=== PATIENT | male | born 1995 | race Caucasian/White ===

== ENCOUNTER 2020-04-25 21:05 | Inpatient (IN) ==
[2020-04-25 21:31] LABS: White Blood Count 7.3 K/mcL (4.3-11.1)
[2020-04-25 21:32] LABS: Basophils % 0.4 %; Eosinophils # 0.1 K/mcL (0.0-0.6); Eosinophils % 1.2 %; Hematocrit 43.8 % (37.5-50.1); Hemoglobin 15.3 g/dL (12.9-16.9); Immature Granulocytes % 0.1 % (0-4); Lymphocytes # 1.2 K/mcL (0.6-4.6); Mean Corpuscular HGB Conc 34.9 g/dL (31.6-35.5); Mean Corpuscular Hemoglobin 31.1 pg (28.0-33.3); Mean Platelet Volume 9.7 fL (9.4-12.4); Monocytes # 0.8 K/mcL (0.0-1.3); Monocytes % 11.4 %; Neutrophils # 5.1 K/mcL (1.6-8.9); Platelet Count 203 K/mcL (140-400); Red Blood Count 4.92 M/mcL (4.19-5.50); Red Cell Distribution Width 12.1 % (11.5-14.5); Segmented Neutrophils % 70.9 %
[2020-04-25 21:32] LABS: Bacteria,Urine Few per hpf (None-Few); Bilirubin,Urine Negative (Negative); Blood,Urine Large (Negative); Clarity,Urine Turbid (Clear); Color,Urine Light-Orange (Yellow); Glucose,Urine (UA) Normal (Normal); Ketones,Urine Trace mg/dL (Negative); Leukocyte Esterase,Urine Negative (Negative); Mucus,Urine Few per lpf (None-Few); Nitrite,Urine Negative (Negative); Protein,Urine 50 mg/dL (Neg-Trace); RBC,Urine TNTC per hpf (0-3); Specific Gravity,Urine 1.024 (1.010-1.025); WBC,Urine 0-3 per hpf (0-3)
[2020-04-25 21:35] LABS: Amphetamine Screen,Urine Positive ng/mL (Cutoff=1000); Barbiturate Screen,Urine Negative ng/mL (Cutoff=200); Benzodiazepines Screen,Urine Negative ng/mL (Cutoff=200); Cannabinoid Screen,Urine Positive ng/mL (Cutoff = 50); Cocaine Screen,Urine Negative ng/mL (Cutoff= 300); Opiate Screen,Urine Negative ng/mL (Cutoff=300); Phencyclidine Screen,Urine Negative ng/mL (Cutoff=25)
[2020-04-25 21:51] LABS: Acetaminophen < 10 mcg/mL (10-20); BUN/Creatinine Ratio 14 (6-26); Blood Urea Nitrogen 15 mg/dL (6-20); Calcium 10.2 mg/dL (8.6-10.3); Carbon Dioxide 29 mEq/L (23-29); Chloride 96 mEq/L (98-107); Chol/HDL Ratio 2.6 (0-4.9); Cholesterol 125 mg/dL (< 200); Ethanol < 10 mg/dL (Less than 10); Glucose 95 mg/dL (70-105); HDL Cholesterol 48 mg/dL (40-59); LDL Cholesterol,Calculated 56 mg/dL (< 100); Osmolality,Calculated 281 (280-300); Potassium 3.6 mEq/L (3.5-5.1); Salicylate < 2.5 mg/dL (15.0-30.0); Sodium 135 mEq/L (136-145); Triglycerides 103 mg/dL (< 150); eGFR For African Americans > 60 (> 60); eGFR For Non-African Americans > 60 (> 60)
[2020-04-25 22:48] LABS: Estimated Average Glucose 108 mg/dl
[2020-04-26] MEDS ORDERED: *HR* LORazepam 1 MG TABLET PO PRN (02:00)
[2020-04-26] MEDS ORDERED: MOM Conc 10 ML UD.LIQ PO PRN (02:00)
[2020-04-26] MEDS ORDERED: Haloperidol Lactate 5 MG/ML VIAL IM PRN (02:00)
[2020-04-26] MEDS ORDERED: *HR* LORazepam 2 MG/ML VIAL IM PRN (02:00)
[2020-04-26] MEDS ORDERED: Mag Hydrox/Al Hydrox/Simeth 30 ML UDC PO PRN (02:00)
[2020-04-26] MEDS ORDERED: haloperidoL 5 MG TABLET PO PRN (02:00)
[2020-04-26] MEDS: Ibuprofen 400 MG TABLET PO PRN ×2 (03:03→17:08)
[2020-04-26] MEDS: traZODone 50 MG TABLET PO PRN (03:03)
[2020-04-26] MEDS: cloNIDine HCL 0.1 MG TABLET PO PRN ×3 (03:04→17:08)
[2020-04-26] MEDS ORDERED: Nicotine 21 MG PATCH.TD24 TD SCH (09:00)
[2020-04-26] MEDS: hydrOXYzine pamoate 25 MG CAPSULE PO PRN ×2 (09:39→17:09)
[2020-04-26] MEDS: Nicotine 2 MG GUM BC PRN ×2 (10:11→17:12)
[2020-04-26 13:28] LABS: Bilirubin,Urine Negative (Negative); Blood,Urine Negative (Negative); Clarity,Urine Clear (Clear); Color,Urine Yellow (Yellow); Glucose,Urine (UA) Normal (Normal); Ketones,Urine Negative (Negative); Leukocyte Esterase,Urine Negative (Negative); Nitrite,Urine Negative (Negative); Protein,Urine Trace mg/dL (Neg-Trace); Specific Gravity,Urine 1.021 (1.010-1.025)
[2020-04-26] MEDS: lamoTRIgine 25 MG TABLET PO SCH (21:04)
[2020-04-27] MEDS: Nicotine 2 MG GUM BC PRN ×5 (07:24→20:02)
[2020-04-27] MEDS: hydrOXYzine pamoate 25 MG CAPSULE PO PRN ×2 (08:59→17:27)
[2020-04-27] MEDS: cloNIDine HCL 0.1 MG TABLET PO PRN ×2 (08:59→17:27)
[2020-04-27] MEDS: traZODone 50 MG TABLET PO PRN (20:03)
[2020-04-27] MEDS: lamoTRIgine 25 MG TABLET PO SCH (20:03)
[2020-04-28] MEDS: Ibuprofen 400 MG TABLET PO PRN ×2 (01:56→08:17)
[2020-04-28] MEDS: Nicotine 2 MG GUM BC PRN ×2 (06:22→10:05)
[2020-04-28 07:47] VITALS: BP 136/82
[2020-04-28] MEDS: hydrOXYzine pamoate 25 MG CAPSULE PO PRN (08:17)
[2020-04-28] MEDS ORDERED: lamoTRIgine 25 MG TABLET PO SCH (21:00)
== END 2020-04-28 10:20 | disposition home or self-care (01) | DRG 753 ==
LOC: EMEROOARM 21:05 → 1ANU 04-26 01:55
PROVIDERS: ADMIT Psychiatry & Neurology Psychiatry; ATTEND Psychiatry & Neurology Psychiatry